=== PATIENT | female | born 1950 | race Caucasian/White ===

== ENCOUNTER 2018-05-15 12:56 | Outpatient (CLI) | payer OTHER | END 2018-05-15 13:06 | disposition home or self-care (01) | LOC: RAD 12:56 | DX: K59.09 Other constipation (principal); N81.6 Rectocele; N81.5 Vaginal enterocele ==

== ENCOUNTER 2018-11-06 11:45 | Inpatient (IN) | payer OTHER ==
[2018-11-06] MEDS ORDERED: [UNRECOGNIZED DRUG - OTHER] PO (12:14)
[2018-11-06] MEDS ORDERED: TOPROL XL50 M1 PO (12:14)
[2018-11-06] MEDS ORDERED: DOXAZOSIN MESYLA2 MG PO (12:15)
[2018-11-06] MEDS ORDERED: FORTAMET500 MG (12:21)
[2018-11-06] MEDS ORDERED: SYNTHROID137 MCG PO (12:21)
[2018-11-06] MEDS ORDERED: VIT C PO (12:22)
[2018-11-06] MEDS ORDERED: MAGNE PO (12:22)
[2018-11-11] MEDS ORDERED: IRBESARTAN-HCT1 EAC1 PO (08:53)
[2018-11-11] MEDS ORDERED: VITAMIN C100 MG (08:54)
[2018-11-11] MEDS ORDERED: MAGNESIUM100 MG (08:56)
== END 2018-11-14 16:38 | disposition home or self-care (01) | DRG 331 ==
LOC: O/R 11:45 → SURH 11-11 06:23 → RECOVERY 11-11 11:45 → SURH 11-11 14:56 → RECOVERY 11-11 22:30 → SURH 11-13 15:12
PROVIDERS: ADMIT Colon & Rectal Surgery
PROC: 0DJD8ZZ Inspection of Lower Intestinal Tract, Via Natural or Artificial Opening Endoscopic (ICD-10-PCS; 2018-11-11)
PROC: 4A12X4Z Monitoring of Cardiac Electrical Activity, External Approach (ICD-10-PCS; 2018-11-11)
PROC: 3E0F7GC Introduction of Other Therapeutic Substance into Respiratory Tract, Via Natural or Artificial Opening (ICD-10-PCS; 2018-11-11)
PROC: 4A033R1 Measurement of Arterial Saturation, Peripheral, Percutaneous Approach (ICD-10-PCS; 2018-11-11)
PROC: 0DTN4ZZ Resection of Sigmoid Colon, Percutaneous Endoscopic Approach (ICD-10-PCS; principal; 2018-11-11 22:30)
DX: K57.30 Diverticulosis of large intestine without perforation or abscess without bleeding (principal); E03.8 Other specified hypothyroidism; K59.02 Outlet dysfunction constipation; I11.9 Hypertensive heart disease without heart failure; E11.9 Type 2 diabetes mellitus without complications; J45.20 Mild intermittent asthma, uncomplicated; G47.33 Obstructive sleep apnea (adult) (pediatric)

== ENCOUNTER 2019-09-25 10:37 | Outpatient (CLI) | payer OTHER ==
[~2019-09-25 10:37] MED LIST: DOXAZOSIN MESYLA2 MG PO; FORTAMET500 MG; IRBESARTAN-HCT1 EAC1 PO; MAGNE PO; MAGNESIUM100 MG; SYNTHROID137 MCG PO; TOPROL XL50 M1 PO; VIT C PO; VITAMIN C100 MG; [UNRECOGNIZED DRUG - OTHER] PO
== END 2019-09-29 15:22 | disposition home or self-care (01) ==
LOC: RAD 10:37
PROVIDERS: ATTEND Colon & Rectal Surgery
DX: K59.09 Other constipation (principal); Z86.010 Personal history of colon polyps; Z80.0 Family history of malignant neoplasm of digestive organs; Z09 Encounter for follow-up examination after completed treatment for conditions other than malignant neoplasm
CPT/HCPCS: 74018; 78266; A9541

== ENCOUNTER 2020-10-10 15:14 | Outpatient (CLI) | payer OTHER | END 2020-10-14 10:00 | disposition home or self-care (01) | LOC: RX STUDY 15:14 | PROVIDERS: ATTEND Colon & Rectal Surgery | DX: K59.09 Other constipation (principal) ==

== ENCOUNTER 2021-03-02 09:30 | Inpatient (IN) | payer OTHER ==
[~2021-03-02] VITALS: Ht 157.5 cm; Wt 70.8 kg
[2021-03-07] MEDS ORDERED: VITAMIN D3125 MC1 (10:19)
[2021-03-07] MEDS ORDERED: ATORVASTATIN CA10 MG (10:19)
[2021-03-07] MEDS ORDERED: FLOVENT HFA12 GM (10:19)
[2021-03-07] MEDS ORDERED: LORATADINE10 MG (10:19)
[2021-03-07] MEDS ORDERED: LINZESS145 MCG (10:20)
== END 2021-03-10 14:00 | disposition home or self-care (01) | DRG 331 ==
LOC: O/R 03-07 05:45 → SURH 03-07 09:30 → SURG 03-07 14:52
PROVIDERS: ADMIT Colon & Rectal Surgery; ATTEND Colon & Rectal Surgery
PROC: 0DQP4ZZ Repair Rectum, Percutaneous Endoscopic Approach (ICD-10-PCS; principal; 2021-03-08)
DX: K62.3 Rectal prolapse (principal); K59.09 Other constipation; N81.6 Rectocele; N81.5 Vaginal enterocele; K64.2 Third degree hemorrhoids; I11.9 Hypertensive heart disease without heart failure; E11.9 Type 2 diabetes mellitus without complications; M79.7 Fibromyalgia; G47.33 Obstructive sleep apnea (adult) (pediatric); E66.09 Other obesity due to excess calories; Z79.4 Long term (current) use of insulin

== ENCOUNTER 2022-09-05 05:30 | Day surgery (SDC) | payer OTHER ==
[~2022-09-05] VITALS: Ht 157.5 cm; Wt 70.3 kg
[~2022-09-05 05:30] MED LIST changes: +ATORVASTATIN CA10 MG; +FLOVENT HFA12 GM; +LABETALOL HCL100 MG PO; +LINZESS145 MCG; +LORATADINE10 MG; +PROBIOTIC PO; +SYNTHROID100 MCG PO; +VITAMIN C PO; +VITAMIN D3125 MC1
[2022-09-05] MEDS ORDERED: NEURONTIN300 MG PO (10:46)
[2022-09-05] MEDS ORDERED: POLY119PG PO (10:46)
[2022-09-05] MEDS ORDERED: PERCOCET 5-3251 EACH PO (10:46)
== END 2022-09-05 14:35 | disposition home or self-care (01) ==
LOC: CIR.AMB 05:30
PROVIDERS: ATTEND Surgery
DX: K43.0 Incisional hernia with obstruction, without gangrene (principal); Z20.822 Contact with and (suspected) exposure to COVID-19; E11.9 Type 2 diabetes mellitus without complications; I10 Essential (primary) hypertension; E03.9 Hypothyroidism, unspecified

== ENCOUNTER 2024-04-16 18:10 | Inpatient (IN) | payer OTHER ==
[~2024-04-16] VITALS: Ht 162.6 cm; Wt 86.2 kg
[~2024-04-16 18:10] MED LIST changes: +NEURONTIN300 MG PO; +PERCOCET 5-3251 EACH PO; +POLY119PG PO
[2024-04-16] MEDS ORDERED: FAMOTIDINE/PF 20 MG in 0.9 % SODIUM CHLORIDE 8 ML IV PUSH STA (18:22)
[2024-04-16] MEDS ORDERED: ONDANSETRON HCL 2 MG/ML VIAL ONE (18:29)
[2024-04-16] MEDS ORDERED: FAMOTIDINE/PF 20 MG/2 ML VIAL ONE (18:30)
[2024-04-16] MEDS ORDERED: 0.9 % SODIUM CHLORIDE 1,000 ML IV SCH ×2 (18:30→23:00)
[2024-04-16] MEDS ORDERED: ONDANSETRON HCL 2 MG/ML VIAL IV ONE (18:30)
[2024-04-16 18:56] LABS: HEMOGLOBIN 13.4 g/dL (12.0-15.00); MEAN CELL VOLUME 86.5 fL (80.00-100.00); MEAN CORPUSCULAR HEMOGLOBIN 29.1 pg (27.00-32.0); MEAN CORPUSCULAR HGB CONC 33.6 g/dl (32.0-36.0); PLATELET COUNT 215 K/uL (150-450); RED BLOOD COUNT 4.62 M/uL (4.00-6.00); RED CELL DISTRIBUTION WIDTH 13.4 % (11.5-14.5)
[2024-04-16 19:03] LABS: BILIRUBIN TOTAL 0.42 mg/dL (0.3-1.2); BILIRUBIN,CONJUGATED 0.14 mg/dL (0.0-0.2); BILIRUBIN,UNCONJUGATED 0.28 mg/dL (0.0-0.6); CALCIUM 10.4 mg/dL (8.5-10.1); CREATININE SERUM 0.87 mg/dL (0.55-1.02); GFR 63.47; GLOBULINA 4.5 G/DL (2.4-3.5); POTASSIUM 3.79 mEq/L (3.5-5.1); TOTAL PROTEIN 8.5 gm/dL (6.4-8.2)
[2024-04-16] MEDS ORDERED: KETOROLAC TROMETHAMINE 30 MG VIAL ONE (19:37)
[2024-04-16] MEDS ORDERED: KETOROLAC TROMETHAMINE 30 MG VIAL IV ONE (19:45)
[2024-04-16] MEDS ORDERED: ONDANSETRON HCL 4 MG in 0.9 % SODIUM CHLORIDE 50 ML IV PRN (23:00)
[2024-04-16] MEDS ORDERED: INSULIN LISPRO 1,000 UNIT/10 ML UNITS SUBCUTANEO PRN (23:00)
[2024-04-16] MEDS ORDERED: DEXTROSE 50 % IN WATER 0.5 G/ML DISP.SYRIN IV PRN (23:00)
[2024-04-17] MEDS ORDERED: ENALAPRILAT DIHYDRATE 1.25 MG/ML VIAL IV SCH
[2024-04-17] MEDS ORDERED: PIPERACILLIN/TAZOBACTAM SODIUM 3.375 GM in DEXTROSE 5 % IN WATER 100 ML IV SCH
[2024-04-17] MEDS ORDERED: LIDOCAINE HCL VISCOUS 20MG/ML BLIST 15ML MM ONE (02:28)
[2024-04-17] MEDS ORDERED: PIPERACILLIN/TAZOBACTAM SODIUM 3.375 GM VIAL IV ONE (02:45)
[2024-04-17 03:16] LABS: INR 1.08; PARTIAL THROMBOPLASTIN TIME 27.1 SECONDS (22.0-34.0); PROTHROMBIN TIME 11.7 SECONDS (9.0-11.5)
[2024-04-17 04:07] VITALS: BP 110/60
[2024-04-17 07:01] LABS: PH,URINE 7.5 (5.0-8.0); URINE APPEARANCE Clear; URINE BILIRRUBIN Negative (NEGATIVE); URINE BLOOD Negative; URINE COLOR Yellow; URINE GLUCOSE Negative (NEGATIVE); URINE KETONE Trace (NEGATIVE); URINE LEUKOCYTE Trace; URINE NITRATE Negative; URINE PROTEIN 30 (NEGATIVE); URINE UROBILINOGEN 0.2 E.U./dl
[2024-04-17 07:05] LABS: URINE BACTERIA 1730.6 uL (0.0-1933); URINE CAST 1.47 uL (0.0-1.40); URINE EPITHELIAL CELLS 61.5 uL (0.0-38.8); URINE RBC 5.4 uL (0.0-20.8); URINE WBC 19.4 uL (0.0-23.2)
[2024-04-17 08:46] VITALS: BP 121/70; O2SAT 98
[2024-04-17] MEDS ORDERED: ENOXAPARIN SODIUM 40 MG/0.4 ML SYRINGE SUBCUTANEO SCH (09:00)
[2024-04-17] MEDS ORDERED: FAMOTIDINE/PF 20 MG in 0.9 % SODIUM CHLORIDE 8 ML IV PUSH SCH (09:00)
[2024-04-17 16:40] VITALS: BP 142/64; O2SAT 100
[2024-04-18 02:07] VITALS: BP 150/79; O2SAT 96
[2024-04-18 10:02] VITALS: BP 138/80; O2SAT 97
[2024-04-18 17:00] VITALS: BP 152/79; O2SAT 99
[2024-04-19 00:20] VITALS: BP 136/83; O2SAT 98
[2024-04-19] MEDS ORDERED: LEVOTHYROXINE SODIUM 125 MCG TABLET PO SCH (06:00)
[2024-04-19 08:00] VITALS: BP 179/82; O2SAT 99
[2024-04-19] MEDS ORDERED: IRBESARTAN 300 MG TABLET PO SCH (09:00)
[2024-04-19] MEDS ORDERED: LACTOBACILLUS ACIDOPHILUS 1 CAP CAP PO SCH (09:00)
[2024-04-19] MEDS ORDERED: LABETALOL HCL 100 MG TABLET PO SCH ×2 (09:00→17:00)
[2024-04-19] MEDS ORDERED: MAGNESIUM HYDROXIDE 30 ML BLIST.PACK PO NR (11:30)
[2024-04-19 14:16] VITALS: BP 134/77
[2024-04-19 17:22] VITALS: BP 148/80; O2SAT 99
[2024-04-19 23:55] VITALS: BP 130/71; O2SAT 98
[2024-04-20 06:53] LABS: HEMATOCRIT 34.1 % (36.0-45.00); HEMOGLOBIN 11.2 g/dL (12.0-15.00); MEAN CELL VOLUME 87.7 fL (80.00-100.00); MEAN CORPUSCULAR HEMOGLOBIN 28.9 pg (27.00-32.0); PLATELET COUNT 142 K/uL (150-450); RED BLOOD COUNT 3.88 M/uL (4.00-6.00); RED CELL DISTRIBUTION WIDTH 13.2 % (11.5-14.5)
[2024-04-20 08:00] VITALS: BP 162/79; O2SAT 97
[2024-04-20] MEDS ORDERED: INTESTINEX680 M1 PO (11:10)
[2024-04-20] MEDS ORDERED: LEVSIN/SL0.125 MG SL (11:10)
== END 2024-04-20 14:02 | disposition home or self-care (01) | DRG 390 ==
LOC: ER 18:12 → SURG 22:55
PROVIDERS: General Practice; Surgery; ADMIT Colon & Rectal Surgery; ATTEND Colon & Rectal Surgery
PROC: BW21ZZZ Computerized Tomography (CT Scan) of Abdomen and Pelvis (ICD-10-PCS; principal; 2024-04-16)
DX: K56.690 Other partial intestinal obstruction (principal); I10 Essential (primary) hypertension; E03.9 Hypothyroidism, unspecified; E11.9 Type 2 diabetes mellitus without complications; G47.33 Obstructive sleep apnea (adult) (pediatric); Z79.4 Long term (current) use of insulin

== ENCOUNTER 2024-04-30 12:17 | Inpatient (IN) | payer OTHER ==
[~2024-04-30] VITALS: Ht 157.5 cm; Wt 70.3 kg
[~2024-04-30 12:17] MED LIST changes: +INTESTINEX680 M1 PO; +LEVSIN/SL0.125 MG SL
--- NOTE | 2024-04-30 12:31 | NUR ---
SE RECIBE FEMINA ALERTA Y ORIENTADA X3 EN AMBULANCIA QUIEN REFIERE DOLOR ABDOMINAL Y VOMITOS. PACIENTE REFIERE FUE OLRAINE DE MARLA EL 3 , EST[facility]O [facility] POR OBSTRUCCION INTESTINAL Y FUE ATENDIDA POR DR HILTON. SE MIDEN S/V Y SE UBICA.
[2024-04-30] MEDS ORDERED: 0.9 % SODIUM CHLORIDE 1,000 ML IV SCH ×2 (14:00→20:45)
[2024-04-30] MEDS ORDERED: KETOROLAC TROMETHAMINE 30 MG VIAL IV ONE (14:00)
[2024-04-30 14:57] LABS: HEMATOCRIT 41.4 % (36.0-45.00); HEMOGLOBIN 14.2 g/dL (12.0-15.00); MEAN CELL VOLUME 84.9 fL (80.00-100.00); MEAN CORPUSCULAR HEMOGLOBIN 29.1 pg (27.00-32.0); MEAN CORPUSCULAR HGB CONC 34.3 g/dl (32.0-36.0); PLATELET COUNT 236 K/uL (150-450); RED BLOOD COUNT 4.88 M/uL (4.00-6.00)
[2024-04-30 15:13] LABS: INR 1.08; PARTIAL THROMBOPLASTIN TIME 27.6 SECONDS (22.0-34.0); PROTHROMBIN TIME 11.7 SECONDS (9.0-11.5)
[2024-04-30 15:27] LABS: CALCIUM 10.3 mg/dL (8.5-10.1); CREATININE SERUM 0.7 mg/dL (0.55-1.02); GFR 81.57; POTASSIUM 4.13 mEq/L (3.5-5.1)
[2024-04-30] MEDS ORDERED: MORPHINE SULFATE 4 MG/ML VIAL IV ONE (19:15)
[2024-04-30 19:23] LABS: URINE APPEARANCE Clear; URINE BILIRRUBIN Negative (NEGATIVE); URINE BLOOD Negative; URINE COLOR Yellow; URINE GLUCOSE Negative (NEGATIVE); URINE KETONE 15 (NEGATIVE); URINE LEUKOCYTE Negative; URINE NITRATE Negative; URINE PROTEIN Trace (NEGATIVE); URINE UROBILINOGEN 0.2 E.U./dl
[2024-04-30 19:35] LABS: URINE BACTERIA 31.8 uL (0.0-1933); URINE EPITHELIAL CELLS 1.4 uL (0.0-38.8)
[2024-04-30 19:42] LABS: URINE RBC 1.1 uL (0.0-20.8); URINE WBC 1.1 uL (0.0-23.2)
[2024-04-30] MEDS ORDERED: PIPERACILLIN/TAZOBACTAM SODIUM 3.375 GM in DEXTROSE 5 % IN WATER 100 ML IV SCH (20:33)
[2024-04-30] MEDS ORDERED: MORPHINE SULFATE 2 MG/ML SYRINGE IV PRN (20:45)
[2024-04-30] MEDS ORDERED: ONDANSETRON HCL 4 MG in 0.9 % SODIUM CHLORIDE 50 ML IV PRN (20:45)
[2024-04-30] MEDS ORDERED: LABETALOL HCL 20MG/4ML SYRINGE IV PRN (20:45)
[2024-04-30] MEDS ORDERED: INSULIN LISPRO 1,000 UNIT/10 ML UNITS SUBCUTANEO PRN (20:45)
[2024-04-30] MEDS ORDERED: DEXTROSE 50 % IN WATER 0.5 G/ML DISP.SYRIN IV PRN (20:45)
[2024-04-30] MEDS ORDERED: FAMOTIDINE/PF 20 MG in 0.9 % SODIUM CHLORIDE 8 ML IV PUSH SCH (21:00)
[2024-04-30 23:53] VITALS: BP 139/79; O2SAT 98
[2024-05-01 03:42] VITALS: BP 139/79; O2SAT 98
[2024-05-01 08:00] VITALS: BP 144/72; O2SAT 97
[2024-05-01] MEDS ORDERED: ENOXAPARIN SODIUM 40 MG/0.4 ML SYRINGE SUBCUTANEO SCH (09:00)
[2024-05-01] MEDS ORDERED: LABETALOL HCL 100 MG/20 ML ML IV PRN (15:00)
[2024-05-01 16:04] VITALS: BP 165/90; O2SAT 98
[2024-05-01 19:39] VITALS: BP 127/73; O2SAT 97
[2024-05-02 00:22] VITALS: BP 143/82; O2SAT 98
[2024-05-02 08:32] LABS: ALBUMIN 3.1 gm/dL (3.4-5.0); BILIRUBIN TOTAL 0.68 mg/dL (0.3-1.2); CALCIUM 8.1 mg/dL (8.5-10.1); CREATININE SERUM 0.61 mg/dL (0.55-1.02); GFR 95.61; GLOBULINA 3.1 G/DL (2.4-3.5); POTASSIUM 4.24 mEq/L (3.5-5.1); TOTAL PROTEIN 6.2 gm/dL (6.4-8.2); TSH 1.78 uIU/mL (0.358-3.74)
[2024-05-02 09:05] VITALS: BP 136/83; O2SAT 97
[2024-05-02] MEDS ORDERED: LABETALOL HCL 100 MG TABLET PO SCH (17:00)
[2024-05-02 17:44] VITALS: BP 156/83; O2SAT 98
[2024-05-02 23:30] VITALS: BP 143/80; O2SAT 97
[2024-05-03] MEDS ORDERED: SYNTHROID 125 MCG (MARCA ORIGINAL) PO SCH (06:00)
[2024-05-03 07:37] LABS: HEMATOCRIT 32.9 % (36.0-45.00); HEMOGLOBIN 11.6 g/dL (12.0-15.00); MEAN CELL VOLUME 85.5 fL (80.00-100.00); MEAN CORPUSCULAR HEMOGLOBIN 30.2 pg (27.00-32.0); MEAN CORPUSCULAR HGB CONC 35.3 g/dl (32.0-36.0); PLATELET COUNT 168 K/uL (150-450); RED BLOOD COUNT 3.85 M/uL (4.00-6.00); RED CELL DISTRIBUTION WIDTH 13.5 % (11.5-14.5)
[2024-05-03 07:41] VITALS: BP 186/88; O2SAT 96
[2024-05-03 07:48] LABS: CALCIUM 7.8 mg/dL (8.5-10.1); CREATININE SERUM 0.51 mg/dL (0.55-1.02); GFR 117.56; MAGNESIUM 1.6 mg/dL (1.8-2.4); PHOSPHOROUS 2.1 mg/dL (2.5-4.9); POTASSIUM 3.36 mEq/L (3.5-5.1)
[2024-05-03] MEDS ORDERED: IRBESARTAN 300 MG TABLET PO SCH (12:15)
[2024-05-03] MEDS ORDERED: HYDROCHLOROTHIAZIDE 25 MG TABLET PO SCH (12:15)
[2024-05-03] MEDS ORDERED: ENALAPRILAT DIHYDRATE 1.25 MG/ML VIAL IV PRN (12:15)
[2024-05-03 16:11] VITALS: BP 149/72; O2SAT 95
[2024-05-03] MEDS ORDERED: AMINO ACIDS 4.25 %/DEXTROSE 5% 1,000 ML PERIFERAL SCH (17:00)
[2024-05-03] MEDS ORDERED: METOPROLOL TARTRATE 50 MG TABLET PO SCH (17:00)
[2024-05-04 00:24] VITALS: BP 140/68; O2SAT 96
[2024-05-04 06:49] LABS: HEMATOCRIT 32.7 % (36.0-45.00); HEMOGLOBIN 11.3 g/dL (12.0-15.00); MEAN CELL VOLUME 85.9 fL (80.00-100.00); MEAN CORPUSCULAR HEMOGLOBIN 29.7 pg (27.00-32.0); MEAN CORPUSCULAR HGB CONC 34.6 g/dl (32.0-36.0); PLATELET COUNT 167 K/uL (150-450); RED BLOOD COUNT 3.81 M/uL (4.00-6.00); RED CELL DISTRIBUTION WIDTH 13.3 % (11.5-14.5)
[2024-05-04 07:38] LABS: CALCIUM 7.6 mg/dL (8.5-10.1); CREATININE SERUM 0.47 mg/dL (0.55-1.02); MAGNESIUM 1.7 mg/dL (1.8-2.4); POTASSIUM 3.36 mEq/L (3.5-5.1)
[2024-05-04 07:48] LABS: GFR 129.18; PHOSPHOROUS 1.1 mg/dL (2.5-4.9)
[2024-05-04 08:00] VITALS: BP 151/85; O2SAT 97
[2024-05-04] MEDS ORDERED: LEVOTHYROXINE SODIUM 100 MCG/VIAL VIAL IV SCH (09:00)
[2024-05-04] MEDS ORDERED: DIATRIZOATE MEGLUMINE, SODIUM 30 ML BOTTLE PO STA (12:55)
[2024-05-04] MEDS ORDERED: POTASSIUM PHOS,M-BASIC-D-BASIC 3 MM/ML VIAL IV ONE (13:00)
[2024-05-04 16:21] VITALS: BP 173/83; O2SAT 98
[2024-05-04 23:40] VITALS: BP 161/72; O2SAT 96
[2024-05-05 02:45] VITALS: BP 148/75; O2SAT 97
[2024-05-05 07:58] VITALS: BP 130/80; O2SAT 95
[2024-05-05 13:06] LABS: CALCIUM 7.9 mg/dL (8.5-10.1); CREATININE SERUM 0.38 mg/dL (0.55-1.02); GFR 165.09; MAGNESIUM 1.6 mg/dL (1.8-2.4); POTASSIUM 3.3 mEq/L (3.5-5.1)
[2024-05-05 13:13] LABS: PHOSPHOROUS 0.9 mg/dL (2.5-4.9)
[2024-05-05] MEDS ORDERED: MAGNESIUM SULFATE IN WATER 4 GM/100 ML PIGGYBACK IV NR (14:00)
[2024-05-05] MEDS ORDERED: POTASSIUM CHLORIDE IN WATER 100 ML IV NR ×2 (14:00→20:00)
[2024-05-05] MEDS ORDERED: POTASSIUM PHOS,M-BASIC-D-BASIC 18 MM in 0.9 % SODIUM CHLORIDE 250 ML IV ONE (16:00)
[2024-05-05 16:19] VITALS: BP 169/78; O2SAT 99
[2024-05-05] MEDS ORDERED: METOCLOPRAMIDE HCL 5 MG/ML VIAL IV SCH (17:00)
[2024-05-06 00:27] VITALS: BP 147/73; O2SAT 96
[2024-05-06 07:49] LABS: CALCIUM 8.3 mg/dL (8.5-10.1); CREATININE SERUM 0.46 mg/dL (0.55-1.02); GFR 132.43; MAGNESIUM 2.2 mg/dL (1.8-2.4); POTASSIUM 3.97 mEq/L (3.5-5.1)
[2024-05-06 08:02] LABS: PHOSPHOROUS 1.2 mg/dL (2.5-4.9)
[2024-05-06 08:16] VITALS: BP 162/75; O2SAT 96
[2024-05-06 11:30] VITALS: BP 129/75; O2SAT 99
[2024-05-06] MEDS ORDERED: POTASSIUM PHOS,M-BASIC-D-BASIC 3 MM/ML VIAL IV ONE (12:00)
[2024-05-06] MEDS ORDERED: TRAMADOL HCL 50 MG TABLET PO PRN (13:45)
[2024-05-06 16:00] VITALS: BP 174/78; O2SAT 97
[2024-05-07 00:48] VITALS: BP 134/64; O2SAT 95
[2024-05-07 08:57] VITALS: BP 162/89; O2SAT 100
[2024-05-07 12:00] VITALS: BP 144/80
[2024-05-07] MEDS ORDERED: NAPH,MB-DB/K PH,MBDB 1 PKT PACKET PO SCH (12:39)
[2024-05-07 16:08] VITALS: BP 147/77; O2SAT 99
[2024-05-08] VITALS: BP 137/65; O2SAT 97
[2024-05-08 08:00] VITALS: BP 137/82; O2SAT 99
[2024-05-09] MEDS ORDERED: PATIENTS OWN MEDICATION (MEDICAMENTO EN PISO) PO SCH (06:00)
== END 2024-05-08 16:54 | disposition home or self-care (01) | DRG 390 ==
LOC: ER 12:17 → SURG 21:58
PROVIDERS: Emergency Medicine; Internal Medicine; Internal Medicine Endocrinology, Diabetes & Metabolism; ADMIT Colon & Rectal Surgery; ATTEND Colon & Rectal Surgery
PROC: BW21YZZ Computerized Tomography (CT Scan) of Abdomen and Pelvis using Other Contrast (ICD-10-PCS; 2024-04-30)
PROC: 02HV33Z Insertion of Infusion Device into Superior Vena Cava, Percutaneous Approach (ICD-10-PCS; principal; 2024-05-02)
PROC: 0DH68UZ Insertion of Feeding Device into Stomach, Via Natural or Artificial Opening Endoscopic (ICD-10-PCS; 2024-05-02)
PROC: B54BZZZ Ultrasonography of Right Lower Extremity Veins (ICD-10-PCS; 2024-05-06)
PROC: B34HZZZ Ultrasonography of Right Upper Extremity Arteries (ICD-10-PCS; 2024-05-06)
DX: K56.699 Other intestinal obstruction unspecified as to partial versus complete obstruction (principal); I11.9 Hypertensive heart disease without heart failure; E03.9 Hypothyroidism, unspecified; E11.649 Type 2 diabetes mellitus with hypoglycemia without coma; E78.49 Other hyperlipidemia; G47.33 Obstructive sleep apnea (adult) (pediatric); Z79.4 Long term (current) use of insulin

== ENCOUNTER 2024-07-30 20:42 | Emergency (ER) | payer OTHER ==
[~2024-07-30] VITALS: Ht 157.5 cm; Wt 68.0 kg
[2024-07-30 20:54] VITALS: BP 121/72; O2SAT 96
[2024-07-30] MEDS ORDERED: SYNTHROID125 MCG (20:55)
[2024-07-30] MEDS ORDERED: LABETALOL HCL100 MG (20:56)
[2024-07-30] MEDS ORDERED: METFORMIN HCL1000 M2 (20:56)
[2024-07-30] MEDS ORDERED: KETOROLAC TROMETHAMINE 30 MG VIAL IV ONE (22:30)
[2024-07-30] MEDS ORDERED: FAMOtidine 10 MG/ML (4ML VIAL) IV ONE (22:30)
[2024-07-30] MEDS ORDERED: METRONIDAZOLE/SODIUM CHLORIDE 500 MG/100 ML PIGGYBACK IV ONE ×2 (22:30)
[2024-07-30] MEDS ORDERED: FAMOTIDINE/PF 20 MG/2 ML VIAL ONE (22:30)
[2024-07-30] MEDS ORDERED: KETOROLAC TROMETHAMINE 30 MG VIAL ONE (22:30)
[2024-07-30] MEDS ORDERED: DIPHENHYDRAMINE HCL 50 MG/ML VIAL 1ML ONE (22:41)
[2024-07-30] MEDS ORDERED: METHYLPREDNISOLONE SOD SUCC 40 MG VIAL ONE (22:41)
[2024-07-30 22:43] LABS: BASO % 0.3 % (0.1-1.2); EOS # 0.04 (0.04-0.54); EOS % 0.3 % (0.7-7.0); HEMOGLOBIN 12.4 g/dL (11.2-15.7); LYMPH # 0.49 (1.18-3.74); LYMPH % 4.2 % (19.3-53.1); MEAN CORPUSCULAR HEMOGLOBIN 29.3 pg (25.6-32.2); MONO # 1.18 (0.24-0.82); NEUT # 9.98 (1.56-6.13); NEUT % 84.5 % (34.0-71.1); PLATELET COUNT 176 K/uL (163-369); RED BLOOD COUNT 4.23 M/uL (3.93-5.22); RED CELL DISTRIBUTION WIDTH 13.8 % (11.6-14.4)
[2024-07-30] MEDS ORDERED: 0.9 % SODIUM CHLORIDE 1,000 ML IV ONE (22:45)
[2024-07-30] MEDS ORDERED: DIPHENHYDRAMINE HCL 50 MG/ML VIAL 1ML IV ONE (22:45)
[2024-07-30] MEDS ORDERED: METHYLPREDNISOLONE SOD SUCC 40 MG VIAL IV ONE (22:45)
[2024-07-30 23:06] LABS: INR 1.08; PARTIAL THROMBOPLASTIN TIME 24.7 SECONDS (22.0-34.0); PROTHROMBIN TIME 11.7 SECONDS (9.0-11.5)
[2024-07-30 23:10] LABS: ALBUMIN 3.6 gm/dL (3.4-5.0); BILIRUBIN TOTAL 0.7 mg/dL (0.3-1.2); CALCIUM 9.9 mg/dL (8.5-10.1); CREATININE SERUM 0.87 mg/dL (0.55-1.02); GFR 63.47; POTASSIUM 4.08 mEq/L (3.5-5.1); TOTAL PROTEIN 7.6 gm/dL (6.4-8.2)
[2024-07-30 23:35] LABS: PH,URINE 6.5 (5.0-8.0); URINE APPEARANCE Clear; URINE BILIRRUBIN Negative (NEGATIVE); URINE BLOOD Negative; URINE COLOR Yellow; URINE GLUCOSE Negative (NEGATIVE); URINE KETONE 15 (NEGATIVE); URINE LEUKOCYTE Small; URINE NITRATE Negative; URINE PROTEIN Trace (NEGATIVE)
[2024-07-30 23:39] LABS: URINE BACTERIA 1010.9 uL (0.0-1933); URINE EPITHELIAL CELLS 38.4 uL (0.0-38.8); URINE WBC 44.3 uL (0.0-23.2)
[2024-07-30 23:44] LABS: URINE RBC 1.3 uL (0.0-20.8)
== END 2024-07-31 02:39 | disposition home or self-care (01) ==
LOC: ER 20:42
PROVIDERS: General Practice
DX: K30 Functional dyspepsia (principal); R10.32 Left lower quadrant pain; R10.11 Right upper quadrant pain; R11.0 Nausea; R10.9 Unspecified abdominal pain; I10 Essential (primary) hypertension; E03.8 Other specified hypothyroidism; E11.9 Type 2 diabetes mellitus without complications; Z79.84 Long term (current) use of oral hypoglycemic drugs; Z91.013 Allergy to seafood
CPT/HCPCS: 36415; 74177; 96365; 96366; 99284; J1200; J1885; J3490 ×3; J7030; Q9965